=== PATIENT | female | born 1985 | race Caucasian/White ===

== ENCOUNTER 2019-08-24 13:04 | Outpatient (REF) | payer OTHER, SELFPAY ==
[2019-08-24 21:32] LABS: HCT 39.9 % (36.0-46.0); HGB 13.4 g/dL (12.0-15.5); Mean Corp. HGB Concentration 33.6 g/dL (32.0-36.0); Mean Corpuscular Volume 89.5 fL (80-95); Mean Platelet Volume 11.2 fL (8.0-11.0); Platelet Count 190 x1000/uL (130-400); RBC 4.46 m/cumm (4.00-5.20); RBC Distribution Width 12.6 % (11.7-14.6); White Blood Cell Count 4.94 k/cumm (4.4-10.8)
[2019-08-24 21:51] LABS: Iron 118 ug/dL (50-170); Total Iron Binding Capacity 405 ug/dL (250-450); Transferrin Sat 29 % (15-50)
[2019-08-24 22:11] LABS: Vitamin D 25 Total 53.7 ng/ml (30-100)
[2019-08-24 22:12] LABS: Hemoglobin A1C 5.2 % (3.8-5.6)
[2019-08-24 22:16] LABS: Calculated LDL 114 mg/dL (<100); Cholesterol 175 mg/dL (<200); HDL Cholesterol 39 mg/dL (40-60); TSH (W/Ref FT4) 1.74 uIU/mL (0.36-3.74); Triglyceride 110 mg/dL (<150); Vitamin B12 624 pg/mL (193-986)
== END 2019-08-24 13:24 ==
LOC: NCHCN 13:04
PROVIDERS: PCP Nurse Practitioner Family; Visit Provider Nurse Practitioner Family
DX: R53.83 Other fatigue (principal); E04.9 Nontoxic goiter, unspecified; F32.9 Major depressive disorder, single episode, unspecified; N39.3 Stress incontinence (female) (male); E66.9 Obesity, unspecified; Z13.1 Encounter for screening for diabetes mellitus; Z13.220 Encounter for screening for lipoid disorders
CPT/HCPCS: 80061; 82306; 85027; 82607; 83036; 83540; 83550; 84443

== ENCOUNTER 2019-09-11 13:48 | Outpatient (REF) | payer OTHER, SELFPAY ==
[2019-09-14 10:46] LABS: Thyroglobulin Antibody 19 U/mL (<=60)
[2019-09-14 11:32] LABS: Thyroperoxidase Antibody <28 U/mL (<=60)
== END 2019-09-11 14:08 ==
LOC: NCHCN 13:48
PROVIDERS: PCP Nurse Practitioner Family; Visit Provider Nurse Practitioner Family
DX: E04.9 Nontoxic goiter, unspecified (principal)
CPT/HCPCS: 86376; 86800

== ENCOUNTER 2019-12-22 15:22 | Outpatient (REF) | payer OTHER, SELFPAY ==
--- NOTE | 2019-12-22 14:30 | PAPFT_PTH ---
PATIENT: Danay Ludwig LOC: [facility]#:[id number] AGE/SX: 34/F ROOM: RE12/22/[address]: Yuliana Reyes : 1985 BED: DIS: 12/22/2019 SPEC #: [id number] RECD: 12/23/19 12:56 STATUS: GRECIA REBuddy #: [id number] BANDAR: 12/22/19 14:[address]: Yuliana Rodriges DEPT: [facility] Cytology RECD BY: Dary Anguiano Tissues: 1 - CX/ENDOCX FOR PAP SMEARS Procedures: PAP THIN PREP/[facility] Screening HPV DNA PROBE Comments: [id number]
== END 2019-12-22 15:42 ==
LOC: NCHCN 15:22
PROVIDERS: PCP Nurse Practitioner Family; Visit Provider Nurse Practitioner Family
DX: Z00.00 Encounter for general adult medical examination without abnormal findings (principal); Z12.4 Encounter for screening for malignant neoplasm of cervix; Z11.51 Encounter for screening for human papillomavirus (HPV)
CPT/HCPCS: 88142; 87624

== ENCOUNTER 2020-03-08 21:49 | Outpatient (REF) | payer OTHER, SELFPAY ==
[2020-03-11 19:30] LABS: SARS-CoV-2 RNA Undetected (Undetected); SARS-CoV-2 Specimen Source Nasopharynx
== END 2020-03-08 22:09 ==
LOC: NCHCN 21:49
PROVIDERS: PCP Nurse Practitioner Family; Visit Provider Nurse Practitioner Family
DX: Z11.59 Encounter for screening for other viral diseases (principal)
CPT/HCPCS: U0003

== ENCOUNTER 2022-04-03 19:30 | Outpatient (REF) | payer BC, SELFPAY ==
[2022-04-03 21:15] LABS: Abs Immature Grans 0.01 10^3/uL (0.0-0.06); Absolute Basophil Count 0.03 10^3/uL (0.0-0.2); Absolute Eosinophil Count 0.05 10^3/uL (0.0-0.7); Absolute Neutrophil Count 2.65 10^3/uL (1.2-6.7); Basophils % 0.7; Eosinophils % 1.2; HCT 41.6 % (36.0-46.0); HGB 14.1 g/dL (11.2-15.7); Immature Grans % 0.2; MCH 29.4 pg (27.0-33.0); MCHC 33.9 % (32.0-36.0); MCV 87 fL (80-95); MPV 10.9 fL (8.0-11.0); Monocytes % 6.9; Platelet Count 212 10^3/uL (130-400); RBC 4.79 10^6/uL (3.93-5.22); RDW 12.2 % (11.7-14.6); RDW-SD 38.8 fL; WBC 4.34 10^3/uL (4.4-10.8)
[2022-04-03 22:04] LABS: Ferritin 37 ng/mL (8-252); Folate 19.9 ng/mL (8.6-20.0); TSH 1.21 uIU/mL (0.36-3.74); Vitamin B12 516 pg/mL (193-986)
[2022-04-05 05:43] LABS: Vitamin D 25 Total 49.4 ng/mL (30-100)
== END 2022-04-03 19:31 | disposition home or self-care (01) ==
LOC: NCHCN 19:30
PROVIDERS: PCP Nurse Practitioner Family; Visit Provider Nurse Practitioner Family
DX: E04.9 Nontoxic goiter, unspecified (principal); N92.0 Excessive and frequent menstruation with regular cycle
CPT/HCPCS: 82306; 82607; 82728; 82746; 84443; 85025

== ENCOUNTER 2023-05-17 20:06 | Outpatient (REF) | payer BC, SELFPAY ==
[2023-05-17 21:04] LABS: Abs Immature Grans 0.01 10^3/uL (0.0-0.06); Absolute Basophil Count 0.04 10^3/uL (0.0-0.2); Absolute Eosinophil Count 0.06 10^3/uL (0.0-0.7); Absolute Lymphocyte Count 1.84 10^3/uL (1.2-3.4); Absolute Neutrophil Count 2.42 10^3/uL (1.2-6.7); Basophils % 0.9; Eosinophils % 1.3; HCT 38.4 % (36.0-46.0); Immature Grans % 0.2; Lymphocytes % 39.4; MCH 31.3 pg (27.0-33.0); MCHC 33.9 % (32.0-36.0); MCV 92 fL (80-95); MPV 10.5 fL (8.0-11.0); Monocytes % 6.4; Neutrophils % 51.8; Platelet Count 170 10^3/uL (130-400); RBC 4.16 10^6/uL (3.93-5.22); RDW 13.2 % (11.7-14.6); RDW-SD 45.1 fL; WBC 4.67 10^3/uL (4.4-10.8)
[2023-05-17 21:35] LABS: Iron 60 ug/dL (50-170); Total Iron Binding Capacity 427 ug/dL (250-450); Transferrin Sat 14 % (15-50)
[2023-05-17 21:36] LABS: Anion Gap 9.8 mmol/L (3-11); BUN 10 mg/dL (7-18); CO2 27.2 mmol/L (21.0-32.0); CREATININE 0.8 mg/dL (0.55-1.02); Calcium 9.3 mg/dL (8.5-10.1); Chloride 103 mmol/L (98-107); Estimated GFR 96.06 (mL/min/1.73m2); Ferritin 27 ng/mL (8-252); Glucose 91 mg/dL (74-106); Potassium 3.8 mmol/L (3.5-5.1); Sodium 140 mmol/L (136-145)
[2023-05-17 21:53] LABS: Vitamin D 25 Total 46.1 ng/mL (30-100)
== END 2023-05-17 20:07 | disposition home or self-care (01) ==
LOC: NCHCN 20:06
PROVIDERS: PCP Nurse Practitioner Family; Visit Provider Family Medicine
DX: Z00.00 Encounter for general adult medical examination without abnormal findings (principal); F32.9 Major depressive disorder, single episode, unspecified; R53.83 Other fatigue; D64.9 Anemia, unspecified
CPT/HCPCS: 80048; 82306; 82728; 83540; 83550; 85025

== ENCOUNTER 2025-01-07 15:12 | Outpatient (REF) | payer BC, SELFPAY ==
[2025-01-07 20:26] LABS: HCT 42.3 % (36.0-46.0); MCH 29.9 pg (27.0-33.0); MCHC 33.1 % (32.0-36.0); MCV 90 fL (80-95); MPV 10.5 fL (8.0-11.0); Platelet Count 192 10^3/uL (130-400); RBC 4.69 10^6/uL (3.93-5.22); RDW 12.5 % (11.7-14.6); RDW-SD 40.8 fL; WBC 6.24 10^3/uL (4.4-10.8)
[2025-01-07 20:46] LABS: ALT 36 U/L (14-59); AST 27 U/L (15-37); Alkaline Phosphatase 64 U/L (46-116); Anion Gap 7.7 mmol/L (3-11); BUN 11 mg/dL (7-18); Bilirubin, Total 0.4 mg/dL (0.2-1.0); CO2 29.3 mmol/L (21.0-32.0); Calcium 9.1 mg/dL (8.5-10.1); Calculated LDL 120 mg/dL (<100); Chloride 102 mmol/L (98-107); Cholesterol 204 mg/dL (<200); Estimated GFR 73.04 (mL/min/1.73m2); Glucose 93 mg/dL (74-106); HDL Cholesterol 39 mg/dL (>or=50); Sodium 139 mmol/L (136-145); TSH 1.23 uIU/mL (0.36-3.74); Total Protein 7.6 g/dL (6.4-8.2); Triglyceride 227 mg/dL (<150)
[2025-01-07 21:10] LABS: FREE T4 0.86 ng/dL (0.76-1.46)
== END 2025-01-07 15:13 | disposition home or self-care (01) ==
LOC: NCHCN 15:12
PROVIDERS: PCP Nurse Practitioner Family; Visit Provider Family Medicine
DX: R63.5 Abnormal weight gain (principal); E78.49 Other hyperlipidemia; R53.83 Other fatigue
CPT/HCPCS: 80053; 80061; 85027; 84439; 84443

== ENCOUNTER 2025-07-15 11:53 | Outpatient (REF) | payer BC, SELFPAY ==
[2025-07-15 17:19] LABS: Cholesterol 206 mg/dL (<200); HDL Cholesterol 41 mg/dL (>or=50)
[2025-07-15 17:23] LABS: Vitamin D 25 Total 65 ng/mL (30-100)
== END 2025-07-15 11:54 | disposition home or self-care (01) ==
LOC: NCHCN 11:53
PROVIDERS: PCP Nurse Practitioner Family; Visit Provider Family Medicine
DX: E78.5 Hyperlipidemia, unspecified (principal); E55.9 Vitamin D deficiency, unspecified
CPT/HCPCS: 80061; 82306